=== PATIENT | male | born 1960 | race Caucasian/White ===

== ENCOUNTER → 2016-10-24 | Outpatient (CLI) | payer BC ==
--- NOTE | 2016-10-27 14:09 | US ---
EXAM DATE: 10/24/16 PATIENT'S AGE: 56 Patient: YE TORRES Facility: [facility], [place], [place] : 1960 Study: US Extremity [id number]/12/2017 3:55:03 PM Ordering Physician: Chalino Pedraza Final Report: INDICATION: Pain, redness, swelling. Evaluate for DVT. COMPARISON: None available. TECHNIQUE: A compression venous ultrasound exam was performed of the right lower extremity using salcedo scale imaging, color Doppler and spectral Doppler analysis. FINDINGS: Sonographic imaging of the right lower extremity demonstrates normal compressibility and color Doppler venous blood flow within the common femoral vein, deep femoral vein, and the proximal greater saphenous vein. Within the thigh the femoral vein is patent and compressible. At a lower level the popliteal, posterior tibial and visualized portions of the peroneal veins also show normal compressibility and color Doppler venous blood flow. Severe subcutaneous edema is seen within the calf, particularly posteriorly, and there is an area of hypoechogenicity in the deeper subcutaneous soft tissues without color signal. Limited imaging of the contralateral groin demonstrates a normal spectral waveform and color Doppler venous blood flow within the left common femoral vein. IMPRESSION: 1. No evidence of deep vein thrombosis within the right lower extremity. 2. Severe subcutaneous edema is seen within the calf, particularly posteriorly, and there is an area of hypoechogenicity in the deeper subcutaneous soft tissues without color signal. A deeper infection associated with a cellulitis to account for this more hypoechoic and deeper area of fluid such as an abscess cannot be excluded. Further evaluation could be obtained with MRI as clinically indicated. Dictated by Speedy Mobley MD @ Oct 24 2016 4:30PM (Electronic Signature) Report Signed by Proxy. AYO
== END ==
LOC: MW.US 14:01
PROVIDERS: ATTEND Physician Assistant
DX: R22.41 Localized swelling, mass and lump, right lower limb (principal); M79.604 Pain in right leg
CPT/HCPCS: 93971-26-RT; 93971-RT